=== PATIENT | male | born 1960 | race Caucasian/White ===

== ENCOUNTER 2017-11-17 11:11 | Emergency (ER) | payer OTHER, SELFPAY ==
[~2017-11-17 11:11] MED LIST: Sodium Chloride 0.9% 100 ML BAG ONE; Sterile Water Irrigation 250 ML BOT ONE
[2017-11-17 11:41] LABS: #Basophils 0.1 thou/uL (0.0-0.2); #Lymphocytes 1.2 thou/uL (1.20-3.40); #Monocytes 0.7 thou/uL (0.11-0.59); #Neutrophils 6.5 thou/uL (1.40-6.50); %Eosinophils 0.5 % (0.0-10.0); %Lymphocytes 14.1 % (21.0-51.0); %Monocytes 8.5 % (0.0-10.0); %Neutrophils 75.8 % (42.0-75.0); Mean Corpuscular HGB CONC 36.2 g/dL (32.0-36.0); Mean Platelet Volume 7.4 fL (7.4-10.4); Platelet Count 211 thou/uL (130-400); RBC Distribution Width 11.3 % (11.5-14.5); Red Blood Cell (RBC) Count 4.55 mill/uL (4.70-6.10); White Blood Cell (WBC) Count 8.5 thou/uL (4.8-10.8)
[2017-11-17 11:43] LABS: PTT 24.2 SEC (22.9-36.1); Prothrombin Time 13.4 SEC (12.0-14.7)
[2017-11-17] MEDS ORDERED: Morphine 10 MG/ML VIAL ONE (11:46)
[2017-11-17] MEDS ORDERED: Ketorolac Tromethamine 30 MG/ML VIAL ONE (11:47)
[2017-11-17] MEDS ORDERED: Ondansetron HCl/PF 4 MG/2 ML Vial ONE (11:47)
[2017-11-17 11:55] LABS: ALT (SGPT) 35 U/L (8-55); AST (SGOT) 29 U/L (5-34); Albumin 4.3 g/dL (3.5-5.0); Alkaline Phosphatase 58 U/L (40-150); Anion Gap 16 mmol/L (10-20); BUN (Urea Nitrogen) 19 mg/dL (8.4-25.7); Bilirubin, Total 0.5 mg/dL (0.2-1.2); CK (CPK) 464 U/L (30-200); Calc. Creatinine Clearance 0 mL/min (70-130); Calcium 8.7 mg/dL (7.8-10.44); Carbon Dioxide 21 mmol/L (22-29); Chloride 109 mmol/L (98-107); Estimated GFR-MDRD 81; Glucose 122 mg/dL (70-105); Potassium 4.1 mmol/L (3.5-5.1); Protein, Total 7.3 g/dL (6.0-8.3); Sodium 142 mmol/L (136-145)
[2017-11-17 11:56] LABS: CKMB 5.5 ng/mL (0-6.6); Troponin I Less than 0.010 ng/mL (< 0.028)
[2017-11-17] MEDS ORDERED: metroNIDAZOLE 500 MG/100 ML BAG ONE (11:56)
[2017-11-17] MEDS ORDERED: CEFAZOLIN 1 GM VIAL ONE (11:56)
--- NOTE | 2017-11-17 12:01 | RAD ---
3 VIEWS LEFT FOOT: Date: 11/17/17 HISTORY: Fall. Pain. COMPARISON: None. FINDINGS: No significant soft tissue swelling. Joint spaces are preserved. Lisfranc alignment is maintained. No fracture. IMPRESSION: No fracture. POS: [facility]
[2017-11-17 12:22] LABS: Bilirubin Negative (Negative); Blood, Urine Negative (Negative); Clarity Clear (Clear); Glucose, Urine (Dipstick) Negative (Negative); Leukocyte Negative (Negative); Nitrite Negative (Negative); Protein, Urine (Dipstick) Negative (Neg-Trace); Urobilinogen 0.2 mg/dL (0.2-1.0); pH, Urine 5.5 (5.0-9.0)
--- NOTE | 2017-11-17 12:22 | RAD ---
RIGHT ANKLE 3 VIEWS: Date: 11/17/17 HISTORY: Fall. Pain. COMPARISON: None. FINDINGS: There appears to be soft tissue emphysema involving the hindfoot. There is evidence of a calcaneal fr acture, comminuted. Given subcutaneous emphysema, the possibility of an open fracture cannot be exclu ded. With regard to the tibial plafond, talar dome, medial and lateral malleoli, no evidence of acute frac ture. IMPRESSION: Hindfoot injury with subcutaneous emphysema suggesting open fracture. POS: [facility]Y
[2017-11-17 12:27] LABS: Bacteria/HPF Rare-Few HPF (None Seen); RBC/HPF 0-3 HPF (0-3); Squamous Epithelial 0-3 HPF (0-3); WBC/HPF None Seen HPF (0-3)
--- NOTE | 2017-11-17 12:28 | RAD ---
RIGHT FOOT 3 VIEWS: Date: 11/17/17 HISTORY: Fall. Pain. COMPARISON: None. FINDINGS: There is a comminuted fracture involving the calcaneus with mild displacement. There is associated so ft tissue swelling and subcutaneous emphysema. The possibility of an open fracture cannot be excluded . Lisfranc alignment is maintained. No evidence of a forefoot or midfoot fracture. IMPRESSION: Calcaneal fracture with associated soft tissue swelling and subcutaneous emphysema. Correlate for ope n fracture. POS: YESY
--- NOTE | 2017-11-17 12:29 | RAD ---
CHEST 1 VIEW: Date: 11/17/17 HISTORY: Fall. Chest pain. COMPARISON: None. FINDINGS: Portable upright chest demonstrates a normal cardiac silhouette. Pulmonary vessels and hilum are norm al. No mass. No consolidation. No pneumothorax. No osseous abnormalities. IMPRESSION: No acute cardiopulmonary process. POS: [facility]
--- NOTE | 2017-11-17 12:42 | CT ---
CT BRAIN WITHOUT CONTRASTS: History: Fell from a tree stand approximately 4 meters. Bump on forehead and above right orbit. Comparison: None. Technique: Noncontrast head CT was performed from skull base to skull vertex. FINDINGS: No parenchymal hemorrhage. No extraaxial hematoma. No midline shift. Basilar cisterns are patent. Bra in volume is age appropriate. Cortical terrell white matter differentiation is preserved. Ventricles and sulci are patent and symmetric. Calvarium is intact. Adequate aeration of the sinuses and mastoid air cells. Minimal left maxillary s inus mucosal disease. IMPRESSION: No intracranial post-traumatic findings. POS: [facility]
[2017-11-17] MEDS ORDERED: Adacel (T-DAP) 0.5 ML VIAL ONE (12:52)
--- NOTE | 2017-11-17 13:12 | CT ---
CT CERVICAL SPINE WITHOUT CONTRAST: Date: 11/17/17 HISTORY: Fall. Patient fell from a height of 4 meters. Post-traumatic pain. COMPARISON: None. TECHNIQUE: CT cervical spine is performed without contrast. Reformatted images are submitted for interpretation. FINDINGS: No prevertebral soft tissue swelling. No epidural hematoma. Varying degrees of central canal stenosis and foraminal narrowing on the basis of degenerative change. Soft tissue neck structures are unremarkable. Upper mediastinum and lung apices are unremarkable. No evidence of craniocervical dissociation. Lateral masses of C1 and C2 articulate appropriately. Jan ropriate articulation of the facets. Intact odontoid process. Straightening of normal cervical lordosis, likely due to patient position, muscle spasm, or cervical collar. Cervical spine vertebral body height is maintained. No fracture. IMPRESSION: No fracture. POS: YESY
== END 2017-11-17 13:40 | disposition short-term general hospital (02) ==
LOC: MADERS 11:11
DX: S92.001B Unspecified fracture of right calcaneus, initial encounter for open fracture (principal); W14.XXXA Fall from tree, initial encounter
CPT/HCPCS: 70450; 71045; 72125; 80053; 81001; 82553; 83880; 84484; 85025; 85610; 85730; 87086; 90471; 90715; 93005; 94760; 96365; 96367; 96375; 96376; J0690; J1885; J2270; J2405; J7050